=== PATIENT | female | born 1980 | race Caucasian/White ===

== ENCOUNTER → 2018-02-01 | Outpatient (CLI) | payer BC | LOC: FIMAGING 09:28 | PROVIDERS: ATTEND Obstetrics & Gynecology | DX: O09.521 Supervision of elderly multigravida, first trimester (principal); O30.041 Twin pregnancy, dichorionic/diamniotic, first trimester; Z3A.12 12 weeks gestation of pregnancy ==

== ENCOUNTER → 2018-03-22 | Outpatient (CLI) | payer BC | LOC: FIMAGING 09:37 | PROVIDERS: ATTEND Obstetrics & Gynecology | DX: O09.522 Supervision of elderly multigravida, second trimester (principal); O30.042 Twin pregnancy, dichorionic/diamniotic, second trimester; O35.8XX1 Maternal care for other (suspected) fetal abnormality and damage, fetus 1; O44.42 Low lying placenta NOS or without hemorrhage, second trimester; O36.62X1 Maternal care for excessive fetal growth, second trimester, fetus 1; O36.6 Maternal care for excessive fetal growth; Z3A.19 19 weeks gestation of pregnancy; Z82.79 Family history of other congenital malformations, deformations and chromosomal abnormalities; Z98.891 History of uterine scar from previous surgery ==

== ENCOUNTER → 2018-04-19 | Outpatient (CLI) | payer BC | LOC: FIMAGING 08:04 | PROVIDERS: ATTEND Obstetrics & Gynecology | DX: O09.522 Supervision of elderly multigravida, second trimester (principal); O30.042 Twin pregnancy, dichorionic/diamniotic, second trimester; Z3A.23 23 weeks gestation of pregnancy; Z98.891 History of uterine scar from previous surgery ==

== ENCOUNTER → 2018-06-15 | Outpatient (CLI) | payer BC | LOC: FIMAGING 09:29 | PROVIDERS: ATTEND Obstetrics & Gynecology | DX: O09.523 Supervision of elderly multigravida, third trimester (principal); O30.043 Twin pregnancy, dichorionic/diamniotic, third trimester; Z3A.31 31 weeks gestation of pregnancy ==

== ENCOUNTER 2018-07-01 23:54 | Inpatient (IN) | payer BC ==
[2018-07-02] MEDS ORDERED: TERBUTALINE SULFATE 1 MG/ML VIAL IV PRN (00:49)
[2018-07-02] MEDS ORDERED: OLIVE OIL 118 ML BTL MISC PRN (00:49)
[2018-07-02] MEDS ORDERED: OXYTOCIN/RINGERS LACTATE 1,000 ML IV PRN (00:49)
[2018-07-02] MEDS ORDERED: MISOPROSTOL 200 MCG TAB PR PRN (00:49)
[2018-07-02] MEDS ORDERED: IBUPROFEN 600 MG TAB PO PRN (00:49)
[2018-07-02] MEDS ORDERED: EPSOM SALT 454 GM TP PRN (00:49)
[2018-07-02] MEDS ORDERED: LR 1,000 ML IV PRN (00:49)
[2018-07-02] MEDS ORDERED: LIDOCAINE 1% 300 MG/30 ML SDV SC PRN (00:49)
[2018-07-02] MEDS ORDERED: ceFAZolin 2 GM/DEXTROSE 100 ML IV ONE (00:57)
[2018-07-02] MEDS ORDERED: LR 500 ML IV ONE (00:57)
[2018-07-02] MEDS ORDERED: LR 1,000 ML IV SCH (01:00)
[2018-07-02 01:02] LABS: PLATELET COUNT 215 10^3/uL (150-400)
[2018-07-02] MEDS ORDERED: CITRIC ACID/SODIUM CITRATE 30 ML UDCUP PO ONE (01:16)
[2018-07-02] MEDS ORDERED: OXYTOCIN 10 UNIT/ML VIAL ONE (01:30)
[2018-07-02] MEDS ORDERED: MISOPROSTOL 200 MCG TAB ONE (01:30)
[2018-07-02] MEDS ORDERED: AMMONIA AROMATIC 1 EACH AMP IH ONE (01:30)
--- NOTE | 2018-07-02 01:40 | PREANESOB ---
Obstetric Pre-Anesthesia Info - General Info : 2 Para: 1 KRISH: 08/11/18 Gestational Age: 34 week(s) and 2 day(s) Anesthesia ROS: wnl Allergies/Adverse Reactions: Allergy/AdvReac Type Severity Reaction Status Date / Time No Known Allergies Allergy Unverified 05/23/18 19:16 Home Medications: Medication Instructions Recorded Vit27&Calcium/Iron/FA 07/01/18 [] Visit Medications: Generic Name Dose Route Start Last Admin Trade Name Freq PRN Reason Stop Dose Admin Lactated Ringer's 1,000 mls @ 0 mls/hr 07/02/18 00:49 Lr IV 07/03/18 00:48 PRN PRN SEE PROTOCOL CONDITIONS Protocol Per Protocol Oxytocin/Lactated Ringer's 1,000 mls @ 125 mls/hr 07/02/18 00:49 Pitocin 20 Units/Lr (Premix) IV PRN PRN Post bleeding Lactated Ringer's 1,000 mls @ 125 mls/hr 07/02/18 01:00 Lr IV 07/03/18 00:59 CONT MISSY Ibuprofen 600 mg 07/02/18 00:49 Motrin PO ONCE PRN post , pain Lidocaine HCl 300 mg 07/02/18 00:49 Lidocaine Hcl 1% SC 12/29/18 00:48 ONCE PRN episiotomy Magnesium Sulfate 454 gm 07/02/18 00:49 Epsom Salt TP 12/29/18 00:48 Q1H PRN perineal discomfort Misoprostol 800 - 1,000 mcg 07/02/18 00:49 Cytotec MA ONCE PRN Vaginal Atony/Bleeding [place] Oil 118 ml 07/02/18 00:49 Sweet Oil MISC 12/29/18 00:48 ONCE PRN perineal massage Terbutaline Sulfate 0.25 mg 07/02/18 00:49 Brethine IV 12/29/18 00:48 ONCE PRN Tachysystole Discontinued Medications Generic Name Dose Route Start Last Admin Trade Name Freq PRN Reason Stop Dose Admin Ammonia (Aromatic Spirit) Confirm 07/02/18 01:30 Ammonia Aromatic Administered 07/02/18 01:31 Dose 1 each IH .STK-MED ONE Citric Acid/Sodium Citrate 30 ml 07/02/18 01:16 07/02/18 01:38 Bicitra PO 07/02/18 01:17 30 ml ONCE ONE Administration Cefazolin Sodium/Dextrose 100 mls @ 200 mls/hr 07/02/18 00:57 Ancef 2 Gm IV 07/02/18 01:26 ONCALL ONE Protocol Lactated Ringer's 500 mls @ 0 mls/hr 07/02/18 00:57 07/02/18 01:38 Lr IV 07/02/18 00:58 500 mls ONCE ONE Administration As Directed Misoprostol Confirm 07/02/18 01:30 Cytotec Administered 07/02/18 01:31 Dose 1,000 mcg .ROUTE .STK-MED ONE Oxytocin Confirm 07/02/18 01:30 Pitocin Administered 07/02/18 01:31 Dose 40 unit .ROUTE .STK-MED ONE - Vital Signs Height/Weight (Nursing): Height 149.86 cm Weight 70.307 kg - Focused Exam Neck exam: FROM Mallampati Score: Class 2 Mouth exam: normal dental/mouth exam Pulmonary: no respiratory distress Cardiovascular: regular rate and rhythym Labs: 07/02/18 00:41 - Plan Consent Signed and on Chart: Yes Patient/Guardian Understands and Agrees to Plan: Yes
[2018-07-02] MEDS ORDERED: BUPIVACAINE/DEXTROSE 7.5MG/ML 2 ML SPINAL AMP SP ONE (01:46)
[2018-07-02] MEDS ORDERED: PHENYLEPHRINE HCL 100 MCG/ML SYR ONE (01:46)
[2018-07-02] MEDS ORDERED: PROPOFOL 200 MG/20 ML VIAL ONE (01:46)
[2018-07-02] MEDS ORDERED: ePHEDrine SULFATE 25 MG/5 ML SYR ONE (01:46)
[2018-07-02] MEDS ORDERED: morphINE PF 5 MG/10 ML INJ ONE (01:47)
[2018-07-02] MEDS ORDERED: fentaNYL 100 MCG/2 ML INJ ONE (01:47)
--- NOTE | 2018-07-02 02:25 | GHP ---
DATE OF ADMISSION: 07/01/2018 ADMITTING DIAGNOSIS: 1. Dichorionic/diamniotic twin intrauterine at 34 weeks 2 days. 2. labor. 3. Previous . HISTORY OF PRESENT ILLNESS: The patient is a 37-year-old, G2, P1-0-0-1 at 34 and 2/7 weeks with Di-Di twins with an KRISH of 08/11/18 by last menstrual period 11/04/17 and consistent with first trimester ultrasound at 6 weeks who presents to Labor and Delivery with complaints of contractions that began about 4 hours ago. She states contractions are every 3 to 7 minutes and has now increased in intensity since in the hospital. She is breathing through her contractions. The patient denies any leakage of fluid or vaginal bleeding. States good movement x2. Patient has good care at [facility], and presented in her first trimester. is complicated by advanced maternal age with negative NIPT. Patient had a previous secondary to failed vacuum attempt and desires repeat . Di-Di twin with concordant growth on ultrasound 2 weeks ago. Baby A is large for gestational age at 94th percentile. She has a previous child with congenital heart defect and echo was normal x 2. testing has been reassuring. The patient did receive Tdap. PAST OB HISTORY: In Jun 2014, she had a primary low-transverse in [facility], after failed vacuum attempt. 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 Cycles are regular every 27 days for 4 to 5 days. The patient denies a history of abnormal Pap smears or any exposure to STDs. CURRENT MEDICATIONS: Include vitamins and Levo 100 mcg. ALLERGIES: No known drug allergies. PAST MEDICAL HISTORY: Hypothyroidism, Jeffrey's. PAST SURGICAL HISTORY: and wisdom teeth extraction. FAMILY HISTORY: Noncontributory. SOCIAL HISTORY: Patient is . She lives with her and their son who is almost 4 years old. She denies alcohol, tobacco, or illicit drug use during this . REVIEW OF SYSTEMS: Ten point review of systems is negative. Pertinent positives noted in HPI. LABS: First trimester H and H was 14.1 and 41.5, platelets 318. A positive, Ab negative. UA and urine culture negative. UDS negative. RPR nonreactive. Hepatitis B surface antigen negative. HIV negative. Parvo virus immune. Rubella immune. Pap, GC and chlamydia negative. Innatal screen negative. Third trimester H and H 11.4 and 34.9. 1 hour Glucola 95. ON ADMISSION: VITAL SIGNS: Are stable. Patient is afebrile at 36.6, heart rate 108, respirations 18, blood pressure 118/87. GENERAL APPEARANCE: The patient is well-nourished, well-developed female. Alert and oriented x3, moderate distress secondary to contractions. SKIN: Warm, dry. No rash. NEURO : Grossly intact. CARDIOVASCULAR: Regular rate and rhythm. LUNGS: Clear to auscultation bilaterally. ABDOMEN: Gravid, soft, nontender. Contractions palpate moderate. PELVIC: 4 cm, 80%, -2, intact. EXTREMITIES: Normal to inspection without calf tenderness or edema. heart tones are Category I tracing. Baby A: baseline 125 beats per minute. Positive accelerations. No decelerations. Moderate variability. Baby B: baseline 130 beats per minute. Positive accelerations. No decelerations. Moderate variability. On [place] she is edgardo every 2 to 3 minutes. ASSESSMENT/PLAN: Patient is a 37-year-old, 2, para 1-0-0-1, at 34 weeks 2 days with dichorionic/diamniotic twin intrauterine , labor, previous section. 1. Admit to Labor and Delivery. 2. Plan for Repeat secondary to active labor. 3. Surgical consents were obtained. Discussed risks, alternatives, benefits with the patient including, but not limited to bleeding, infection, and damage to surrounding organs. 4. Patient understands all risks of the surgery and wants to proceed at this time. The patient was properly consented. 5. Antibiotics peoplesoft hcm consultant to Operating Room. 6. Sequential compression devices for deep venous thrombosis prophylaxis. /[id number]/MODL MTDD
[2018-07-02] MEDS ORDERED: OXYCODONE/APAP 5/325 TAB PO PRN (02:50)
[2018-07-02] MEDS ORDERED: NALOXONE HCL 0.4 MG/ML INJ IVP PRN ×2 (02:50→02:51)
[2018-07-02] MEDS ORDERED: ONDANSETRON 4 MG/2 ML VIAL IVP PRN ×2 (02:50→02:51)
[2018-07-02] MEDS ORDERED: METOCLOPRAMIDE 10 MG/2 ML VIAL IVP PRN ×2 (02:50→02:51)
[2018-07-02] MEDS ORDERED: fentaNYL 100 MCG/2 ML INJ IVP PRN (02:50)
[2018-07-02] MEDS ORDERED: MEPERIDINE 25 MG/0.5 ML AMP IVP PRN (02:50)
[2018-07-02] MEDS ORDERED: PHENYLEPHRINE HCL 100 MCG/ML SYR IVP PRN (02:50)
[2018-07-02] MEDS ORDERED: OXYTOCIN 100 UNITS/10 ML VIAL ONE (03:20)
--- NOTE | 2018-07-02 03:32 | POSTANESTH ---
Post Anesthetic Evaluation Cardiovascular Status: Normal, Stable Respiratory Status: Normal, Stable Level of Consciousness/Mental Status: Can Participate in Eval Pain Control: Adequate, Prn Tx Ordered Nausea/Vomiting Control: Adequate, Prn Tx Ordered Complications Possibly Related to Anesthesia: None Noted
[2018-07-02] MEDS ORDERED: PROMETHAZINE HCL 25 MG/ML INJ IVP PRN (03:56)
[2018-07-02] MEDS ORDERED: BISACODYL 10 MG SUPP PR PRN (03:56)
[2018-07-02] MEDS ORDERED: MAGNESIUM HYDROXIDE 30 ML UDCUP PO PRN (03:56)
[2018-07-02] MEDS ORDERED: DOCUSATE SODIUM 100 MG CAP PO PRN (03:56)
[2018-07-02] MEDS ORDERED: LACTULOSE 20 GM/30 ML UDCUP PO PRN (03:56)
[2018-07-02] MEDS ORDERED: POLYETHYLENE GLYCOL 3350 17 GM PKT PO PRN (03:56)
--- NOTE | 2018-07-02 04:03 | OBDEL ---
Info Type: Repeat Presentation at Delivery: Vertex (Baby A; Baby B-transverse back down) L&D Analgesia/Anesthesia Type: Spinal GBS+: No (unknown) Intrapartum Medications: Discontinued Medications Generic Name Dose Route Start Last Admin Trade Name Chandu PRN Reason Stop Dose Admin Citric Acid/Sodium Citrate 30 ml 07/02/18 01:16 07/02/18 01:38 Bicitra PO 07/02/18 01:17 30 ml ONCE ONE Administration Cefazolin Sodium/Dextrose 100 mls @ 200 mls/hr 07/02/18 00:57 07/02/18 01:44 Ancef 2 Gm IV 07/02/18 01:26 100 mls ONCALL ONE Administration Protocol Lactated Ringer's 500 mls @ 0 mls/hr 07/02/18 00:57 07/02/18 01:38 Lr IV 07/02/18 00:58 500 mls ONCE ONE Administration As Directed - Infant Care Provider Welfare Specialist/SPECIAL EDUCATION DIRECTOR: Graciela Agudelo - Hospital Course Intrapartum: 07/02/18 04:00 Di-Di TIUP @ 34 2/7 weeks with c/o ctx's in labor. Previous c/s for failed vacuum attempt. Concordant growth on u/s 2 weeks ago. Baby A LGA with EFW 94%. AMA with neg NIPT. Hypothyroidism -stable on meds. Previous child with congenital heart disease- echo normal x 2. Indications for Delivery: Spontaneous Labor ( at 34 2/7 weeks; previous c /s-declines trial of labor) Vaginal Delivery - Labor and Delivery Onset of Contractions Date: 07/01/18 Onset of Contractions Time: 21:00 Cord Gases: Cord Gases Cord Blood PCO2 78 mmHg (37-60) H 07/02/18 02:45 Cord Base Excess -13.2 mEq/L (-13.6--3.2) 07/02/18 02:45 Cord ABG pH 7.04 (7.10-7.37) L 07/02/18 02:45 Cord VBG pH 7.16 (7.20-7.42) L 07/02/18 02:45 Operative Report - Delivery Pre-op Diagnoses: Di-Di TIUP @ 34 2/7 weeks with ctx's in labor; previous c/s-declines a trial of labor. Post-op Diagnoses: Di-Di TIUP @ 34 2/7 weeks with ctx's in labor; previous c/s-declines a trial of labor. History of Prior Section: Yes Number of Prior Sections: 1 Nulliparous Prior to Delivery: No Indications for Prior Section: Other (Specify) (Failed forcep attempt) Indications for Current Section: Elective/Repeat Procedure: Unscheduled, Low Transverse Surgeon: Pam Navas Tire Trucker: Ashley Larkin Anesthesiologist: Bishop Casper Complications: None Findings: A viable, Baby A, male born at 0027 in cephalic position with 7 and 9 Apgars. A viable, Baby B, female born at 0237 in transverse back-down position with ECV to breech with 3 and 7 Apgars. Delayed cord clamping x 60 seconds for Baby A then cord clamped x 2 and cut. Baby A to waiting SPECIAL EDUCATION DIRECTOR. Baby B very difficult to deliver secondary to position, after multiple attempts of trying to turn baby, the buttocks were finally grasped and Baby A delivered in usual breech fashion. Cord clamped quickly and infant to waiting SPECIAL EDUCATION DIRECTOR. Cord gases obtained for Baby B and cord bloods x 2. Placentas intact with 3 -vc x 2 and spontaneously removed. Grossly normal appearing uterus, tubes and ovaries. Inspection of hysterotomy revealed no extensions. No complications. Specimen(s)/Path: Other (Specify) (none) IV Fluid (ml): 1,600 EBL: 1 L UO: 300 cc clear urine at end Cord Gases: Cord Gases Cord Blood PCO2 78 mmHg (37-60) H 07/02/18 02:45 Cord Base Excess -13.2 mEq/L (-13.6--3.2) 07/02/18 02:45 Cord ABG pH 7.04 (7.10-7.37) L 07/02/18 02:45 Cord VBG pH 7.16 (7.20-7.42) L 07/02/18 02:45 [place] Data KRISH: 08/11/18 Gestational Age: 34 week(s) and 2 day(s) Twin A Delivery Date: 07/02/18 Delivery Time: 00:27 Sex of Infant: Male Score (1 Min): 7 Score (5 Min): 9 Twin B Delivery Date: 07/02/18 Delivery Time: 00:37 Sex of Infant: Female Score (1 Min): 3 Score (5 Min): 7 ICD10 Worksheet Patient Problems: Problems Problem Status Onset Dichorionic diamniotic twin in third trimester Acute labor Acute Previous section complicating Acute Status post repeat low transverse section Acute - ICD10 Problem Qualifiers (1) Dichorionic diamniotic twin in third trimester (2) labor (3) Previous section complicating (4) Status post repeat low transverse section
[2018-07-02] MEDS: ACETAMINOPHEN 325 MG TAB PO PRN ×2 (05:02→12:57)
--- NOTE | 2018-07-02 05:26 | GOP ---
DATE OF OPERATION: 07/02/2018 SURGEON: Pam Navas DO IV THERAPY NURSE: JESUS Cooper. ANESTHESIA: Spinal. ANESTHESIOLOGIST: Dr. Casper. PREOPERATIVE DIAGNOSIS: 1. Dichorionic diamniotic twin intrauterine at 34 weeks 2 days. 2. contractions, active labor. 3. Previous section, declines trial of labor. POSTOPERATIVE DIAGNOSIS: 1. Dichorionic diamniotic twin intrauterine at 34 weeks 2 days. 2. contractions, active labor. 3. Previous section, declines trial of labor. PROCEDURE PERFORMED: Repeat low transverse section. FINDINGS: Baby A is a viable male born at 0227, in cephalic position, with 7 and 9 Apgars. Clear amniotic fluid noted. Baby B is a viable female infant born at 0237, was in transverse back-down position with 3 and 7 Apgars. Clear fluid noted upon entry to amniotic sac. Delayed cord clamping x60 seconds occurred for baby A, cord clamped x2, cut. Baby A to awaiting FACILITIES AND GROUNDS DIRECTOR. Baby B was very difficult to deliver secondary to position. After multiple attempts of trying to turn the baby, the buttocks were finally grasped and B delivered in usual breech fashion. Cord clamped quickly and to awaiting FACILITIES AND GROUNDS DIRECTOR. Cord gases obtained for baby B and cord bloods x2. Placentas were intact with 3-vessel cord x2 and spontaneously removed. Grossly normal- appearing uterus, tubes, and ovaries. Inspection of the hysterotomy revealed no extensions. ESTIMATED BLOOD LOSS: 1 L. INDICATIONS: The patient is a 37-year-old, 2, para 1-0-0-1, with di/di twin intrauterine at 34 weeks 2 days, with a history of a previous C- section, who presents to labor and delivery with complaints of contractions that are getting more intense and every 2-3 minutes. She was found to be 4 cm dilated, 80% effaced, and in labor. Patient declines a trial of labor at this time. Discussed proceeding with a repeat at this time. Discussed risks, benefits, alternatives of the procedure including, but not limited to, bleeding, infection, and damage to surrounding organs. The patient understands all risks of the procedure and was properly consented. DESCRIPTION OF PROCEDURE: The patient was taken back to the operating room where spinal anesthesia was obtained without difficulty. The patient was placed in a supine position with leftward tilt, and prepped and draped in the usual sterile fashion. A Baird catheter was placed. After WHO time-out was performed, a Pfannenstiel skin incision was made through the old scar. This was carried down to the fascia using the Bovie. The fascia was then extended laterally using the Bello scissors. Rectus muscles were dissected away both inferiorly and superiorly from the overlying fascia using Bello scissors. Rectus muscles were then in the midline. Peritoneum was visualized and entered bluntly. Bladder blade was inserted. Vesicouterine peritoneum was identified, entered sharply with Metzenbaum scissors. Bladder flap was created digitally. Lower uterine segment was identified. A low transverse uterine incision was made with a scalpel. Incision was extended cephalad and caudad bluntly. Entry into the amniotic sac, baby A revealed clear fluid. The head was brought out of the incision, followed with the rest of the body without any difficulty. Delayed cord clamping occurred for 60 seconds. Cord was then clamped x2 and cut. handed to awaiting FACILITIES AND GROUNDS DIRECTOR. Cord blood was obtained. Then, we entered the amniotic sac of baby B, again clear fluid noted. Baby was noted to be in transverse position, back up. After multiple attempts of ECV, the baby's buttocks were finally grasped and baby delivered in enzo breech position in the usual breech fashion. Cord was quickly clamped and cut, and infant handed to awaiting FACILITIES AND GROUNDS DIRECTOR. Cord gases were obtained as well as cord blood and sent for analysis. Placentas then delivered spontaneously intact with 3-vessel cords. The uterus was unable to be exteriorized; however, it was cleared of all clots and debris. Uterine incision was closed in 2 layers. First layer was a running locked stitch of 0 Vicryl. Hemostasis was noted. Second layer was an imbricating layer using 0 Vicryl. Hemostasis was noted. Gutters were cleared of all clots and debris. Uterine incision was reinspected one last time. There was slight oozing noted, so Catia was then placed and hemostasis achieved. The fascia was then closed with 0 Vicryl in a continuous fashion. Hemostasis noted. Skin was then closed with 4-0 Vicryl on a Steve needle. Patient tolerated the procedure well. No complications. Sponge, lap, and needle counts correct x2. The patient was then taken out of dorsal supine position and taken to the recovery area in stable condition. INTRAVENOUS FLUIDS: 1600 cc LR. URINE OUTPUT: 300 cc of clear urine at the end of the procedure. /[id number]/MODL MTDD
[2018-07-02] MEDS ORDERED: LEVOTHYROXINE 100 MCG TAB PO SCH (06:00)
[2018-07-02] MEDS: IBUPROFEN 600 MG TAB PO SCH ×4 (06:05→23:58)
--- NOTE | 2018-07-02 11:39 | OBPP ---
Progress Note Assessment/Plan: Assessment: 37 y/p POD 0 s/p Rpt LTCS @ 34 weeks secondary to twins in labor Plan: Pt desires abdominal binder today. Gradually increase diet and begin PO pain meds. Routine POC. support for twins in NICU. 07/02/18 11:38 Subjective/ Course: 07/02/18 11:35 Pt is doing well this am. She has good pain control now but is feeling puritis. She denies n/v and is tolerating clear liquids. She tried pumping earlier and had some collustum. She is ready to sit up in a chair. Babies are stable in the NICU and are doing well. Objective: 07/02/18 00:41 07/02/18 00:41 Patient ABO/Rh A POSITIVE 07/02/18 00:41 Uric Acid 4.9 mg/dL (2.5-6.8) 07/02/18 00:41 Total Bilirubin 0.3 mg/dL (0.1-1.4) 07/02/18 00:41 Conjugated Bilirubin 0.0 mg/dL (0.0-0.5) 07/02/18 00:41 Unconjugated Bilirubin 0.3 mg/dL (0.0-1.1) 07/02/18 00:41 AST 17 IU/L (14-46) 07/02/18 00:41 ALT 26 IU/L (9-52) 07/02/18 00:41 Lactate Dehydrogenase 464 IU/L (313-618) 07/02/18 00:41 Temp Pulse Resp BP Pulse Ox 36.2 C 99 15 115/74 94 07/02/18 08:00 07/02/18 08:00 07/02/18 08:00 07/02/18 08:00 07/02/18 08:00 Uterine Position/Fundal Height: Umbilicus -2 Uterine Tone: Firm Physical Exam - Physical Exam General Appearance: alert, no apparent distress Neck: non-tender, full range of motion, supple Respiratory: chest non-tender, lungs clear, normal breath sounds Cardiac/Chest: regular rate, rhythm Abdomen: normal bowel sounds, incision (c/d/i) Extremities: swelling (no), Alex's sign (neg)
[2018-07-02] MEDS: SENNOSIDES/DOCUSATE SODIUM TAB PO SCH ×2 (12:49→20:55)
[2018-07-02] MEDS: KETOROLAC 30 MG/1 ML SDV IVP PRN (20:55)
[2018-07-02] MEDS: LEVOTHYROXINE 88 MCG TAB PO SCH (23:59)
[2018-07-03] MEDS: KETOROLAC 30 MG/1 ML SDV IVP PRN ×3 (02:49→14:37)
[2018-07-03] MEDS: IBUPROFEN 600 MG TAB PO SCH ×4 (05:34→20:33)
[2018-07-03] MEDS: SENNOSIDES/DOCUSATE SODIUM TAB PO SCH ×2 (09:06→20:33)
[2018-07-03] MEDS: ACETAMINOPHEN 325 MG TAB PO PRN ×2 (12:03→18:09)
--- NOTE | 2018-07-03 12:59 | OBPP ---
Progress Note Assessment/Plan: Assessment: POD 1 s/p RCS - chemo twins, PT labor anemia Plan: routine care, iron BID 07/03/18 12:56 Subjective/ Course: 07/02/18 11:35 Pt is doing well this am. She has good pain control now but is feeling puritis. She denies n/v and is tolerating clear liquids. She tried pumping earlier and had some collustum. She is ready to sit up in a chair. Babies are stable in the NICU and are doing well. 07/03/18 12:57 Pt doing well. [place] duramorph wore down when she got up this am. Feels Toradol really helping - will start narcs when needed. Working on pumping and getting colostrum. Nadia reg diet. amb ok. able to urinate fine. feels bleeding has lessened. Disc pumping schedule to try to optimize sleep. Objective: 07/03/18 02:20 07/02/18 00:41 Patient ABO/Rh A POSITIVE 07/02/18 00:41 Uric Acid 4.9 mg/dL (2.5-6.8) 07/02/18 00:41 Total Bilirubin 0.3 mg/dL (0.1-1.4) 07/02/18 00:41 Conjugated Bilirubin 0.0 mg/dL (0.0-0.5) 07/02/18 00:41 Unconjugated Bilirubin 0.3 mg/dL (0.0-1.1) 07/02/18 00:41 AST 17 IU/L (14-46) 07/02/18 00:41 ALT 26 IU/L (9-52) 07/02/18 00:41 Lactate Dehydrogenase 464 IU/L (313-618) 07/02/18 00:41 Temp Pulse Resp BP Pulse Ox 35.8 C L 96 16 103/66 95 07/03/18 12:00 07/03/18 12:00 07/03/18 12:00 07/03/18 12:00 07/03/18 12:00 Uterine Position/Fundal Height: Umbilicus +2 Uterine Tone: Firm Physical Exam - Physical Exam Abdomen: non-tender (approp post op tenderness), soft, incision (CDI - no bandage, looks great), other (FF at umb +2, normal lochia) Extremities: non-tender, pedal edema (mild) Skin: normal color, warm/dry Neuro/Psych: alert, normal mood/affect
[2018-07-03] MEDS: IRON POLYSAC/IRON HEME 28 MG TAB PO SCH ×2 (13:49→20:33)
[2018-07-03] MEDS: SIMETHICONE 80 MG TAB CHEW PO PRN ×3 (13:50→20:33)
[2018-07-03] MEDS ORDERED: IBUPROFEN 600 MG TAB PO SCH (18:00)
[2018-07-03] MEDS: HYDROCODONE/APAP 5/325 TAB PO PRN ×2 (18:07→22:37)
[2018-07-03] MEDS: LEVOTHYROXINE 88 MCG TAB PO SCH (20:33)
[2018-07-04] MEDS: IBUPROFEN 600 MG TAB PO SCH ×4 (02:26→21:27)
[2018-07-04] MEDS: ACETAMINOPHEN 325 MG TAB PO PRN ×3 (07:13→19:42)
[2018-07-04] MEDS: HYDROCODONE/APAP 5/325 TAB PO PRN ×3 (07:14→19:42)
[2018-07-04] MEDS: SENNOSIDES/DOCUSATE SODIUM TAB PO SCH ×2 (09:26→21:26)
[2018-07-04] MEDS: SIMETHICONE 80 MG TAB CHEW PO PRN ×2 (09:27→21:27)
--- NOTE | 2018-07-04 11:44 | OBPP ---
Progress Note Assessment/Plan: Assessment: 37 y/p POD 2 s/p Rpt LTCS @ 34 weeks secondary to twins in labor Plan: She is doing well post-op. No serious issues. Continue PO pain meds, and support. Will d/c to [facility] tomorrow. 07/02/18 11:38 07/04/18 11:43 Subjective/ Course: 07/02/18 11:35 Pt is doing well this am. She has good pain control now but is feeling puritis. She denies n/v and is tolerating clear liquids. She tried pumping earlier and had some collustum. She is ready to sit up in a chair. Babies are stable in the NICU and are doing well. 07/03/18 12:57 Pt doing well. [place] duramorph wore down when she got up this am. Feels Toradol really helping - will start narcs when needed. Working on pumping and getting colostrum. Nadia reg diet. amb ok. able to urinate fine. feels bleeding has lessened. Disc pumping schedule to try to optimize sleep. 07/04/18 11:40 Pt is doing better each day. She has good pain control with Ibprofen and [place]. She is ambulating and voiding without difficulty and had a nml BM today. She has min lochia. She is working on breast feeding and pumping and babies are doing well, stable in the NICU. Objective: 07/03/18 02:20 07/02/18 00:41 Patient ABO/Rh A POSITIVE 07/02/18 00:41 Uric Acid 4.9 mg/dL (2.5-6.8) 07/02/18 00:41 Total Bilirubin 0.3 mg/dL (0.1-1.4) 07/02/18 00:41 Conjugated Bilirubin 0.0 mg/dL (0.0-0.5) 07/02/18 00:41 Unconjugated Bilirubin 0.3 mg/dL (0.0-1.1) 07/02/18 00:41 AST 17 IU/L (14-46) 07/02/18 00:41 ALT 26 IU/L (9-52) 07/02/18 00:41 Lactate Dehydrogenase 464 IU/L (313-618) 07/02/18 00:41 Temp Pulse Resp BP Pulse Ox 36.4 C 82 18 108/66 96 07/04/18 09:33 07/04/18 02:30 07/04/18 09:33 07/04/18 09:33 07/04/18 09:33 Uterine Position/Fundal Height: Umbilicus -3 Uterine Tone: Firm Physical Exam - Physical Exam General Appearance: WD/WN, alert, no apparent distress Neck: non-tender, full range of motion, supple Respiratory: chest non-tender, lungs clear, normal breath sounds Cardiac/Chest: regular rate, rhythm Abdomen: normal bowel sounds, incision (c/d/i) Extremities: swelling (no), Alex's sign (neg)
[2018-07-04] MEDS: IRON POLYSAC/IRON HEME 28 MG TAB PO SCH (13:36)
[2018-07-04] MEDS: FERRO-SEQUELS 65 MG TAB.ER PO SCH ×2 (13:55→21:26)
[2018-07-04] MEDS: LEVOTHYROXINE 88 MCG TAB PO SCH (21:27)
[2018-07-05] MEDS: IBUPROFEN 600 MG TAB PO SCH ×3 (03:23→16:23)
[2018-07-05] MEDS: HYDROCODONE/APAP 5/325 TAB PO PRN ×3 (03:23→16:20)
[2018-07-05 09:19] VITALS: BP 111/75
[2018-07-05] MEDS: SENNOSIDES/DOCUSATE SODIUM TAB PO SCH (09:31)
[2018-07-05] MEDS: FERRO-SEQUELS 65 MG TAB.ER PO SCH (09:31)
--- NOTE | 2018-07-05 12:25 | OBPP ---
Progress Note Assessment/Plan: Assessment: POD 3 s/p RCS - chemo twins, PT labor anemia Plan: routine care, iron BID....pt desires d/c home to be back as boarder 07/03/18 12:56 07/05/18 12:23 Subjective/ Course: 07/02/18 11:35 Pt is doing well this am. She has good pain control now but is feeling puritis. She denies n/v and is tolerating clear liquids. She tried pumping earlier and had some collustum. She is ready to sit up in a chair. Babies are stable in the NICU and are doing well. 07/03/18 12:57 Pt doing well. [place] duramorph wore down when she got up this am. Feels Toradol really helping - will start narcs when needed. Working on pumping and getting colostrum. Nadia reg diet. amb ok. able to urinate fine. feels bleeding has lessened. Disc pumping schedule to try to optimize sleep. 07/04/18 11:40 Pt is doing better each day. She has good pain control with Ibprofen and [place]. She is ambulating and voiding without difficulty and had a nml BM today. She has min lochia. She is working on breast feeding and pumping and babies are doing well, stable in the NICU. 07/05/18 12:23 Pt doing well. Wants to go see son at home--will be boarding here with twins. Pumping with good supply. Trying to work with latching when they're able. Bld is low. urinating fine. pain controlled with ibu/norco. amb well. hydrating well. Objective: 07/03/18 02:20 07/02/18 00:41 Patient ABO/Rh A POSITIVE 07/02/18 00:41 Uric Acid 4.9 mg/dL (2.5-6.8) 07/02/18 00:41 Total Bilirubin 0.3 mg/dL (0.1-1.4) 07/02/18 00:41 Conjugated Bilirubin 0.0 mg/dL (0.0-0.5) 07/02/18 00:41 Unconjugated Bilirubin 0.3 mg/dL (0.0-1.1) 07/02/18 00:41 AST 17 IU/L (14-46) 07/02/18 00:41 ALT 26 IU/L (9-52) 07/02/18 00:41 Lactate Dehydrogenase 464 IU/L (313-618) 07/02/18 00:41 Temp Pulse Resp BP Pulse Ox 36.4 C 94 18 111/75 94 07/05/18 08:00 07/05/18 08:00 07/05/18 08:00 07/05/18 08:00 07/05/18 08:00 Uterine Position/Fundal Height: Umbilicus -1 Uterine Tone: Firm Physical Exam - Physical Exam Abdomen: non-tender (approp post op tenderness), soft, incision (CDI), other ( FF at umb-1) Extremities: non-tender, pedal edema (minimal) Skin: normal color, warm/dry Neuro/Psych: alert, normal mood/affect
--- NOTE | 2018-07-05 12:29 | OBGCSDC ---
General Delivery Information - General Info : 2 Para: 2 Abortions: 0 Type: Repeat L&D Analgesia/Anesthesia Type: Spinal Admission Date: 07/02/18 Labs: Patient ABO/Rh A POSITIVE 07/02/18 00:41 Hct 29.0 % (38.0-47.0) L 07/03/18 02:20 - Hospital Course Intrapartum: 07/02/18 04:00 Di-Di TIUP @ 34 2/7 weeks with c/o ctx's in labor. Previous c/s for failed vacuum attempt. Concordant growth on u/s 2 weeks ago. Baby A LGA with EFW 94%. AMA with neg NIPT. Hypothyroidism -stable on meds. Previous child with congenital heart disease- echo normal x 2. : 07/02/18 11:35 Pt is doing well this am. She has good pain control now but is feeling puritis. She denies n/v and is tolerating clear liquids. She tried pumping earlier and had some collustum. She is ready to sit up in a chair. Babies are stable in the NICU and are doing well. 07/03/18 12:57 Pt doing well. Reading duramorph wore down when she got up this am. Feels Toradol really helping - will start narcs when needed. Working on pumping and getting colostrum. Nadia reg diet. amb ok. able to urinate fine. feels bleeding has lessened. Disc pumping schedule to try to optimize sleep. 07/04/18 11:40 Pt is doing better each day. She has good pain control with Ibprofen and [place]. She is ambulating and voiding without difficulty and had a nml BM today. She has min lochia. She is working on breast feeding and pumping and babies are doing well, stable in the NICU. 07/05/18 12:23 Pt doing well. Wants to go see son at home--will be boarding here with twins. Pumping with good supply. Trying to work with latching when they're able. Bld is low. urinating fine. pain controlled with ibu/norco. amb well. hydrating well. - Delivery Providers Surgeon: Pam Navas [employer] Supervisor: Ashley Larkin Anesthesiologist: Bishop Casper - Delivery Number of Prior Sections: 1 Indications for Current Section: Elective/Repeat, Other (Specify) ( SOOC - 4 cm on admit) Surgical Procedures: Unscheduled, Low Transverse Intra-op Complications: None EBL: 1 L UO: 300 cc clear urine at end [place] Data KRISH: 08/11/18 Gestational Age: 34 week(s) and 5 day(s) Twin A Delivery Date: 07/02/18 Delivery Time: 02:27 Sex of Infant: Male [place] Weight (gm): 2318 kg Score (1 Min): 7 Score (5 Min): 9 Twin B Delivery Date: 07/02/18 Delivery Time: 02:37 Sex of : Female Weight (gm): 2132 kg Score (1 Min): 3 Score (5 Min): 7 Discharge Information - Discharge Information Prescriptions: Hydrocodone/APAP 5/325 [[place] 5/325 (*)] 1 - 2 tab PO Q4HRS PRN #30 tab PRN Reason: Pain, Moderate Condition: Good Instruction/Follow Up: See Instruction Sheet, Two Weeks (incision check), Four Weeks (with therapist), Six Weeks (with Revoal)
[2018-07-05] MEDS: ACETAMINOPHEN 325 MG TAB PO PRN (16:21)
== END 2018-07-05 17:51 | disposition home or self-care (01) | DRG 766 ==
LOC: FLD 23:54 → OBSVTOIN 07-02 00:50 → FLD 07-02 01:52 → FOB 07-02 05:13
PROVIDERS: ADMIT Obstetrics & Gynecology; ATTEND Obstetrics & Gynecology
PROC: 10D00Z1 Extraction of Products of Conception, Low, Open Approach (ICD-10-PCS; principal; 2018-07-02)
DX: O60.14X0 Preterm labor third trimester with preterm delivery third trimester, not applicable or unspecified (principal); Z37.2 Twins, both liveborn; Z3A.34 34 weeks gestation of pregnancy; O34.219 Maternal care for unspecified type scar from previous cesarean delivery
CPT/HCPCS: G0008; J0690; J1200; J1885; J2274; J2370; J2590; J2704; J3010

== ENCOUNTER → 2018-07-01 | Day surgery (SDC) | payer BC | END | disposition home or self-care (01) | LOC: FOBOP 11:10 | PROVIDERS: ATTEND Obstetrics & Gynecology | DX: O30.093 Twin pregnancy, unable to determine number of placenta and number of amniotic sacs, third trimester (principal); Z3A.34 34 weeks gestation of pregnancy ==